=== PATIENT | male | born 1970 | race Caucasian/White ===

== ENCOUNTER → 2017-03-14 | Emergency (ER) | payer SELFPAY ==
[~2017-03-14] VITALS: Ht 170.2 cm; Wt 73.6 kg
[2017-03-14 23:03] VITALS: BP 136/92
== END | disposition left against medical advice (07) ==
LOC: EME 22:55
DX: L53.9 Erythematous condition, unspecified (principal); Z53.21 Procedure and treatment not carried out due to patient leaving prior to being seen by health care provider